=== PATIENT | female | born 1945 | race Caucasian/White ===

== ENCOUNTER 2017-12-21 18:12 | Observation (INO) | payer MEDICARE ==
[~2017-12-21] VITALS: Ht 165.1 cm; Wt 60.0 kg
[2017-12-21 19:26] LABS: ALBUMIN 3.4 g/dL (3.4-5.0); ANION GAP 7 mmol/L (5-15); CALCIUM 8.8 mg/dL (8.5-10.1); CHLORIDE 110 mmol/L (98-107)
[2017-12-21 19:30] LABS: ALANINE AMINOTRANSFERASE 18 U/L (12-78); ALKALINE PHOSPHATASE 104 U/L (45-117); BASOPHILS # (AUTO) 0.04 x10^3/uL (0-0.1); BASOPHILS % (AUTO) 1 % (0-1); BILIRUBIN,TOTAL 0.6 mg/dL (0.2-1.0); CREATININE 0.89 mg/dL (0.55-1.02); EOSINOPHILS # (AUTO) 0.34 x10^3/uL (0-0.4); EOSINOPHILS % (AUTO) 6 % (1-7); LYMPHOCYTES # (AUTO) 1.74 x10^3/uL (1-3.4); LYMPHOCYTES % (AUTO) 31 % (22-44); MD NO; MEAN CORPUSCULAR HEMOGLOBIN 28.9 pg (27.0-34.8); MEAN CORPUSCULAR HGB CONC 33.2 g/dL (32.4-35.8); MEAN CORPUSCULAR VOLUME 86.9 fL (80-100); MEAN PLATELET VOLUME 8.3 fL (7.4-10.4); MONOCYTES # (AUTO) 0.47 x10^3/uL (0.2-0.8); MONOCYTES % (AUTO) 9 % (2-9); NEUTROPHILS # (AUTO) 2.98 x10^3/uL (1.8-6.8); NEUTROPHILS % (AUTO) 54 % (42-75); PLATELET COUNT 180 x10^3/uL (130-400); RED BLOOD COUNT 4.29 x10^6/uL (3.82-5.3); SALICYLATE LEVEL < 1.7 mg/dL (2.8-20.0); TOTAL PROTEIN 7.2 g/dL (6.4-8.2)
[2017-12-21 19:31] LABS: ACETAMINOPHEN < 2 mcg/mL (10-30)
[2017-12-21 21:01] LABS: MICROSCOPIC NOT IND
[2017-12-21 21:17] LABS: CULTURE INDICATED? NO
[2017-12-21 21:21] LABS: AMPHETAMINE SCREEN, URINE Negative (Negative); BARBITURATE SCREEN, URINE Negative (Negative); BENZODIAZEPINE SCREEN, URINE Negative (Negative); CANNABINOID SCREEN, URINE Negative (Negative); METHADONE SCREEN, URINE Negative (Negative); OPIATE SCREEN, URINE Negative (Negative)
[2017-12-21 21:22] LABS: COCAINE SCREEN, URINE Negative (Negative)
[2017-12-22] MEDS ORDERED: POLYETHYLENE GLYCOL 17 GM PACKET PO PRN (02:00)
[2017-12-22] MEDS ORDERED: ONDANSETRON ODT 4 MG PO PRN (02:00)
[2017-12-22] MEDS ORDERED: ACETAMINOPHEN 325 MG TABLET PO PRN (02:00)
[2017-12-22] MEDS ORDERED: LORazepam 0.5MG TABLET PO PRN (02:00)
[2017-12-22 03:19] VITALS: BP 187/86
[2017-12-22 03:25] VITALS: BP 171/97
[2017-12-22 06:21] VITALS: BP 101/65
[2017-12-22 07:50] VITALS: BP 148/82
[2017-12-22 19:27] VITALS: BP 98/65
[2017-12-22] MEDS: RISPERIDONE 0.5 MG TABLET PO SCH (20:37)
[2017-12-23 07:24] VITALS: BP 142/81
[2017-12-23 19:41] VITALS: BP 168/96
[2017-12-23] MEDS: RISPERIDONE 0.5 MG TABLET PO SCH (20:58)
[2017-12-24 08:08] VITALS: BP 171/92
[2017-12-25] MEDS ORDERED: ARIPIPRAZOLE 5 MG TABLET PO SCH (09:00)
== END 2017-12-24 17:45 | disposition home or self-care (01) ==
LOC: ED 22:40 → SUATTDRO 12-22 01:45 → EDIP 12-22 01:46 → 2N 12-22 02:38
PROVIDERS: ADMIT Hospitalist; ATTEND Hospitalist
DX: F22 Delusional disorders (principal); I10 Essential (primary) hypertension
CPT/HCPCS: 36415; 70450; 71045; 80053; 80307; 80329; 81003; 82140; 84443; 85025; 93005; G0378; G0480

== ENCOUNTER 2018-02-23 15:02 | Emergency (ER) | payer MEDICARE ==
[2018-02-23 15:15] VITALS: BP 154/102
[2018-02-23 15:40] LABS: MICROSCOPIC AUTO
[2018-02-23 15:43] LABS: CULTURE INDICATED? YES
[2018-02-23 15:44] LABS: BASOPHILS # (AUTO) 0.01 x10^3/uL (0-0.1); BASOPHILS % (AUTO) 0 % (0-1); EOSINOPHILS % (AUTO) 4 % (1-7); LYMPHOCYTES # (AUTO) 1.12 x10^3/uL (1-3.4); LYMPHOCYTES % (AUTO) 22 % (22-44); MD NO; MEAN CORPUSCULAR HEMOGLOBIN 28.5 pg (27.0-34.8); MEAN CORPUSCULAR HGB CONC 33.8 g/dL (32.4-35.8); MEAN CORPUSCULAR VOLUME 84.2 fL (80-100); MEAN PLATELET VOLUME 7.9 fL (7.4-10.4); MONOCYTES # (AUTO) 0.33 x10^3/uL (0.2-0.8); MONOCYTES % (AUTO) 6 % (2-9); NEUTROPHILS # (AUTO) 3.52 x10^3/uL (1.8-6.8); NEUTROPHILS % (AUTO) 68 % (42-75); PLATELET COUNT 196 x10^3/uL (130-400); RED BLOOD COUNT 4.34 x10^6/uL (3.82-5.3)
[2018-02-23 15:52] LABS: CHLORIDE 107 mmol/L (98-107)
[2018-02-23 15:53] LABS: ALBUMIN 3.7 g/dL (3.4-5.0); ANION GAP 9 mmol/L (5-15); CALCIUM 8.3 mg/dL (8.5-10.1); CREATININE 0.76 mg/dL (0.55-1.02)
== END 2018-02-23 16:39 | disposition home or self-care (01) ==
LOC: ED 16:33
DX: R42 Dizziness and giddiness (principal); F22 Delusional disorders; F28 Other psychotic disorder not due to a substance or known physiological condition; I10 Essential (primary) hypertension; R11.2 Nausea with vomiting, unspecified
CPT/HCPCS: 36415; 80048; 81001; 82040; 85025; 87086; 93005; 99285

== ENCOUNTER 2018-11-25 16:33 | Emergency (ER) | payer SELFPAY ==
[~2018-11-25] VITALS: Ht 154.9 cm; Wt 48.0 kg
--- NOTE | 2018-11-25 16:33 | NUR ---
Pt BIB [facility]-c/o bilat LE swelling and high BP starting today. Pt states hx of HTN, states does not take medication. Pt with 2+ edema to bilat LEs, ambulatory with steady gait. Pt placed in gown, positioned for comfort in bed with warm blanket. Continuous heart, oxygen and BP monitors applied, all safety measures observed.
--- NOTE | 2018-11-25 17:34 | NUR ---
Pt resting in bed with eyes closed, resp even and unlabored, NADN. Dr. Catalan at bedside to evaluate pt.
--- NOTE | 2018-11-25 17:39 | NUR ---
Pt given soda and water per request, ok per Dr. Catalan.
--- NOTE | 2018-11-25 18:09 | NUR ---
US tech at bedside.
[2018-11-25 18:27] LABS: BASOPHILS # (AUTO) 0.03 x10^3/uL (0-0.1); BASOPHILS % (AUTO) 1 % (0-1); EOSINOPHILS # (AUTO) 0.38 x10^3/uL (0-0.4); EOSINOPHILS % (AUTO) 6 % (1-7); LYMPHOCYTES # (AUTO) 1.44 x10^3/uL (1-3.4); LYMPHOCYTES % (AUTO) 22 % (22-44); MD NO; MEAN CORPUSCULAR HEMOGLOBIN 28.7 pg (27.0-34.8); MEAN CORPUSCULAR HGB CONC 32.9 g/dL (32.4-35.8); MEAN CORPUSCULAR VOLUME 87.3 fL (80-100); MONOCYTES % (AUTO) 8 % (2-9); NEUTROPHILS # (AUTO) 4.25 x10^3/uL (1.8-6.8); NEUTROPHILS % (AUTO) 64 % (42-75); PLATELET COUNT 200 x10^3/uL (130-400); RED BLOOD COUNT 4.04 x10^6/uL (3.82-5.3); RED CELL DISTRIBUTION WIDTH 16.2 % (9.6-15.2)
[2018-11-25] MEDS ORDERED: LABETALOL 5MG/ML, 20ML IVPush ONE (18:30)
[2018-11-25 18:40] LABS: ALBUMIN 3.3 g/dL (3.4-5.0); ANION GAP 10 mmol/L (5-15); CALCIUM 8.2 mg/dL (8.5-10.1); CHLORIDE 112 mmol/L (98-107)
--- NOTE | 2018-11-25 18:43 | NUR ---
Meal tray ordered for pt per request.
[2018-11-25 18:45] LABS: ALANINE AMINOTRANSFERASE 23 U/L (12-78); ALKALINE PHOSPHATASE 104 U/L (45-117); BILIRUBIN,TOTAL 0.5 mg/dL (0.2-1.0); CREATININE 0.98 mg/dL (0.55-1.02); T4 (THYROXINE) 7.8 mcg/dL (4.8-13.9); TOTAL PROTEIN 6.8 g/dL (6.4-8.2)
--- NOTE | 2018-11-25 18:46 | NUR ---
Pt states she does not want to take any medication, refusing IV insertion. Pt positioned for comfort in bed, denies other needs.
--- NOTE | 2018-11-25 19:31 | NUR ---
POC DISCUSSED. PT AGREEABLE TO [employer] TO DROP IN [facility]. PT DENIES FURTHER NEEDS AT THIS TIME. INFORMED.
[2018-11-25 19:52] VITALS: BP 126/61
== END 2018-11-25 20:05 | disposition home or self-care (01) ==
LOC: ED 19:24
DX: R60.0 Localized edema (principal); I10 Essential (primary) hypertension
CPT/HCPCS: 36415; 71045; 80053; 84436; 84443; 84484; 85025; 93970; 99284